=== PATIENT | male | born 1955 | race African-American/Black ===

== ENCOUNTER 2019-04-14 17:59 | Emergency (ER) | payer OTHER ==
[~2019-04-14] VITALS: Ht 180.3 cm; Wt 70.8 kg
[~2019-04-14 17:59] MED LIST: ASPIRIN EC81 M1 PO; B-12500 MCG PO; BACTRIM DS TAB1 EACH PO; FISH OIL 1,0001 EAC5 PO; IBUPROFEN 800800 M1 PO; IRON325 PO; LISINOPRIL30 MG PO; MULTIVITAMINS1 EAC7 PO; NORCO 5-325 TA1 EACH PO
[2019-04-14 18:22] LABS: URINE BILIRUBIN NEGATIVE (Negative); URINE BLOOD NEGATIVE (Negative); URINE CLARITY CLEAR; URINE COLOR YELLOW; URINE GLUCOSE-RANDOM* NEGATIVE (Negative); URINE KETONES NEGATIVE (Negative); URINE LEUKOCYTES-REFLEX NEGATIVE (Negative); URINE NITRITE-REFLEX NEGATIVE (Negative); URINE PROTEIN (DIPSTICK) NEGATIVE (Negative); URINE UROBILINOGEN 0.2 E.U./dl (0.2-1.0)
[2019-04-14] MEDS ORDERED: NORCO 5-325 TA1 EAC1 PO (19:51)
[2019-04-14 20:30] VITALS: BP 146/93
== END 2019-04-14 20:31 | disposition home or self-care (01) ==
LOC: ER 17:59
PROVIDERS: Emergency Medicine
DX: M53.3 Sacrococcygeal disorders, not elsewhere classified (principal); I10 Essential (primary) hypertension; Z98.890 Other specified postprocedural states; Z87.891 Personal history of nicotine dependence

== ENCOUNTER 2019-04-17 11:54 | Emergency (ER) | payer OTHER ==
[~2019-04-17] VITALS: Ht 180.3 cm; Wt 71.2 kg
[~2019-04-17 11:54] MED LIST changes: +NORCO 5-325 TA1 EAC1 PO
[2019-04-17] MEDS ORDERED: AMITRIPTYLINE H25 M2 PO (12:33)
[2019-04-17] MEDS ORDERED: MEDROLDOSEPACK PO (16:06)
[2019-04-17] MEDS ORDERED: NORFLEX100 MG PO (16:08)
[2019-04-17] MEDS ORDERED: NAPROSYN500 MG PO (16:08)
[2019-04-17 16:22] VITALS: BP 108/74
== END 2019-04-17 16:23 | disposition home or self-care (01) ==
LOC: ER 11:54
DX: M54.42 Lumbago with sciatica, left side (principal); I10 Essential (primary) hypertension; Z90.89 Acquired absence of other organs; Z87.891 Personal history of nicotine dependence

== ENCOUNTER → 2019-04-20 | Outpatient (CLI) | payer OTHER ==
[~2019-04-20] MED LIST changes: +AMITRIPTYLINE H25 M2 PO; +MEDROLDOSEPACK PO; +NAPROSYN500 MG PO; +NORFLEX100 MG PO
== END ==
LOC: RAD 08:57
DX: M51.36 Other intervertebral disc degeneration, lumbar region (principal)

== ENCOUNTER → 2019-04-23 | Outpatient (CLI) | payer OTHER | LOC: MRI 13:46 | DX: M47.27 Other spondylosis with radiculopathy, lumbosacral region (principal); M48.07 Spinal stenosis, lumbosacral region; M51.15 Intervertebral disc disorders with radiculopathy, thoracolumbar region; N28.1 Cyst of kidney, acquired ==

== ENCOUNTER → 2019-05-06 | Outpatient (CLI) | payer OTHER ==
[~2019-05-06] VITALS: Ht 180.3 cm; Wt 71.7 kg
[~2019-05-06] MED LIST changes: +GARLIC1 EACH PO
--- NOTE | ~2019-05-06 | HPC ---
[facility] [address] [address] PAIN MANAGEMENT CONSULTATION Name: LAISHA FOREMAN Room #: REG [facility] Adeola#: [id number] Admission: 05/06/19 Attend Phys: Jessica Preciado MD Discharge: Date of : 55 Report #: [id number] THIS REPORT FOR: //name// CC: Jessica Wang DATE OF SERVICE: 05/06/2019 CHIEF COMPLAINT: Back pain and pain that radiates down into my left buttocks. HISTORY: The patient is a 63-year-old gentleman who has been referred to the pain clinic for evaluation of pain involving his low back. The patient states that he has worked for about 25 years with a [employer]. He has a somewhat stressful job. This was quite a bit of bending, lifting and physical activity associated with his job. He has noticed some increased pain and discomfort in the low back area. This started about 04/14/2019. Denies any trauma. He has not had surgery on his back. This is the first episode of this problem. He is not noting any significant bowel or bladder dysfunction. Has noted pain and discomfort, which is warm and pulsating in the lower portion of his buttocks down the posterior portion of his leg involving the calf. He has noted some episodes of tightness. He had an MRI and x-ray. He has been seen in the Emergency Room on 2 occasions because of this pain and discomfort. He has been referred to the pain clinic for evaluation. ALLERGIES: No known drug allergies. CURRENT MEDICATIONS: Garlic, amitriptyline 25 mg at bedtime, vitamin B12 500 mcg daily, fish oil 1000 mg, multivitamin in the past, aspirin 81 mg, lisinopril 30 mg, takes 40 mg daily. PAST MEDICAL HISTORY: Hypertension, stomach problems. PAST SURGICAL HISTORY: Bunionectomy, hernia repair. 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 He is not working because of the pain. He is in the process of receiving disability compensation. REVIEW OF SYSTEMS: Questionnaire, generally good health, decreased appetite, fatigue and weakness, wears glasses, sometimes for reading, blurred vision, hearing loss, ringing in the ears, loss of appetite, nervousness. LABORATORY DATA: MRI of the lumbar spine dated 04/23/2019, indications: 1. Severe low back pain, left side radicular, left buttocks and hip pain, burning pain in the ankle, L2-L3 shows no focal disk protrusion. Central canal and neural foramen are maintained. There is mild bilateral facet degenerative change. [address] [address] PAIN MANAGEMENT CONSULTATION Name: LAISHA FOREMAN Room #: REG [facility].#: [id number] Admission: 05/06/19 Attend Phys: Jessica Preciado MD Discharge: Date of : 55 Report #: [id number] 2. L3-L4 demonstrates disk bulging diffusely without focal disk protrusion. The central canal with canal measures 7-8 mm. There is moderate bilateral facet degenerative change with facet joint fluid. There is uhxs-sc-whsxyinr ligamentum flavum hypertrophy. There is mild bilateral foraminal encroachment. 3. From the disk bulging. 4. L4-L5 demonstrates diffuse disk bulging. There is a more focal left lateral component with mass effect upon the left neural foramen and associated prominence left neural foraminal encroachment. The right neural foramen is fairly widely maintained. There is mild bilateral facet degenerative change. Central canal is maintained. 5. L5-S1 shows no focal protrusion. There is moderate facet spurring and degenerative change. The neural and foraminal canals are maintained. There is a cystic pelvic mass in the bladder. PAIN CLINIC ASSESSMENT AND PQRS: 1. History of osteoarthritis. The patient is not being treated for osteoarthritis, but has some arthritic changes in his spine. He is not being treated for rheumatoid arthritis. 2. Height 5 feet 11 inches, weight 158 pounds, BMI is 22.0. 3. Vital Signs: Blood pressure 150/92, pulse 82, respiratory rate 14, room air saturation is 100%. 4. Pain intensity 7/10. 5. Fall history: The patient has not fallen in the last 3 months. 6. Blood thinner. The patient is not on a blood thinning medication. 7. Hypertension. The patient is being treated for hypertension. 8. Opioids greater than 6 weeks. The patient is not on her opioid regimen. 9. Risk assessment tool, low for opioid use. 10. Functional assessment tool. 11. Recreational drug use. The patient denied. 12. Tobacco: The patient has never smoked. 13. Alcohol. The patient denies use of alcoholic beverages. PHYSICAL EXAMINATION: GENERAL: The patient is a well-developed, well-nourished black male, appears his stated age. He is alert and oriented x 3. His affect is appropriate. Speech is fluent. HEENT: Normocephalic, atraumatic. Extraocular eye muscles intact. Sclerae nonicteric. Mucous membranes are moist. NECK: Without adenopathy or JVD. Upper extremity muscle strength judged to be 5/5 for the major muscle groups in the upper extremity. HEART: Regular rate. S1, S2. ABDOMEN: Nontender. Bowel sounds present. MUSCULOSKELETAL: The patient without significant scoliosis, kyphosis or lordosis. Lower extremity muscle strength is judged to be 5/5 for the major muscle groups in the lower extremity. The patient has pain and discomfort that [facility] [address] [place] [address] PAIN MANAGEMENT CONSULTATION Name: LAISHA FOREMAN Room #: REG [facility].#: [id number] Admission: 05/06/19 Attend Phys: Jessica Preciado MD Discharge: Date of : 55 Report #: [id number] radiates down the left lateral portion of his buttocks into the L5-S1 dermatomal distribution with numbness and tingling associated with this dermatomal distribution. He has positive straight leg raise. Anant sign is negative. Anterior, posterior spring tests are negative. IMPRESSION: L5-S1 dermatomal distribution with pain that is radiating down the left side of his leg with numbness, weakness and sensory changes involving the leg in the L5-S1 dermatomal distribution. RECOMMENDATIONS: We discussed treatment options with the patient. A model was used to indicate the areas of problem and pathology. The patient's MRI was reviewed with him and his and an explanation was provided. The patient and his states that they feel that they understand what is going on. I think the patient will benefit from an epidural steroid injection. Risks and benefits of the procedure had been discussed. They include but are not limited to infection, worsening pain, no improvement in pain, spinal headache, nerve damage. The patient would like to proceed. The patient will return to the Pain clinic after his insurance company has provided him certification. We would like to thank you for letting us participate in his care. The patient is unable to resume work because of the intensity of the pain, which he is experiencing. He does walk with an antalgic gait. By: [id number] Jessica Preciado MD /GIDEON
[2019-05-06 08:52] VITALS: BP 150/92
--- NOTE | 2019-05-06 09:23 | NUR ---
Pain Clinic Assessment: 1. History of Osteoarthritis: SPINE History of Rheumatoid Arthritis: Not Applicable 2. Height: 5 ft. 11 in. 180.3 cm. Weight: 158.0 lb. oz. 71.668 kg. Patient's BMI: 22.0 3. Vital Signs: BP: 150/92 Pulse: 82 Resp: 14 Temp: 02 Sat: 100 ECG Mon: 4. Pain Intensity: 7 5. Fall Risk: Dizziness: N Needs help standing or walking: N Fallen in the last 3 months: N Fall risk comments: 6. Patient on Blood Thinner: None 7. History of Hypertension: Y 8. Opioid Therapy greater than 6 weeks: N Opiate Contract Signed: 9. Risk Assessment Tool Provided: 10. Functional Assessment Tool: 11. Recreational Drug Use: Never Drug Type: Tobacco Use: Never Smoker Tobacco Type: Amount or Packs/day: How Many Years: Alcohol Use: No Frequency: Quant:
== END ==
LOC: PAIN 07:58
DX: M54.9 Dorsalgia, unspecified (principal); Z79.899 Other long term (current) drug therapy; I10 Essential (primary) hypertension

== ENCOUNTER → 2019-05-13 | Outpatient (CLI) | payer OTHER | LOC: ULTRA 08:11 | DX: N28.1 Cyst of kidney, acquired (principal); I15.0 Renovascular hypertension ==

== ENCOUNTER → 2019-05-20 | Outpatient (CLI) | payer OTHER ==
[~2019-05-20] VITALS: Ht 180.3 cm; Wt 70.4 kg
--- NOTE | ~2019-05-20 | HPC ---
[facility] [place] [address] [place] [address] PAIN MANAGEMENT CONSULTATION Name: LAISHA FOREMAN Room #: REG [facility] Adeola#: [id number] Admission: 05/20/19 ������������������ Attend Phys: Jessica Preciado MD Discharge: ������������������ Date of : 55 Report #: [id number] THIS REPORT FOR: //name// CC: Jessica Wang DATE OF SERVICE: 05/20/2019 CHIEF COMPLAINT: Here for an epidural injection. I am still having pain that is going down in my back, leg with numbness and weakness. HISTORY: The patient is a 63-year-old gentleman who has been evaluated in the pain clinic because of lumbar radiculopathy. He is having pain and discomfort, which is quite problematic. As you recall, he works for the [employer] He has been working there for about 25 years. 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 He has noted pain, which became more problematic in 04/2019. He is having some pain and discomfort that has been radiating down into his buttocks on the left side involving the calf. He has returned to the pain clinic with a desire to undergo an epidural steroid injection to help curtail his pain. He is having pain that is involving the anterior portion of his thigh on the lateral side as well as some pain in the buttocks and calves. ALLERGIES: No known drug allergies. CURRENT MEDICATIONS: Garlic, amitriptyline 25 mg at bedtime, vitamin B12 of 500 mcg daily, fish oil 1000 mg, multivitamins in the past, aspirin 81 mg, lisinopril 30 mg, 40 mg of lisinopril daily. PAIN CLINIC ASSESSMENT/PQRS: 1. History of osteoarthritis. The patient is not being treated for osteoarthritis, but has some arthritic changes in his spine. He is not being treated for rheumatoid arthritis. 2. Height 5 feet 11 inches, weight 155 pounds, BMI is 21.7. 3. Vital signs: Blood pressure 133/83, pulse 73, respiratory rate 14, room air saturations 100%. 4. Pain intensity 03/18. 5. Fall history: The patient has not fallen in the last 3 months. 6. Blood thinner. The patient is not on a blood thinning medication. 7. Hypertension. The patient is being treated for hypertension. 8. Opioids greater than 6 weeks. The patient receives medications from his primary. He is not being treated with opioid medications on a regular basis. 9. Risk assessment tool, low for opioid use. 10. Functional assessment tool 57/70. 11. Recreational drug use. The patient denies. 12. Tobacco: The [place] [address] PAIN MANAGEMENT CONSULTATION Name: LAISHA FOREMAN RIMMA Room #: REG Kat[facility] Mir#: [id number] Admission: 05/20/19 ������������������ Attend Phys: Jessica Preciado MD Discharge: ������������������ Date of : 55 Report #: [id number] 13. Alcohol. The patient denies frequent use of alcoholic beverages. PHYSICAL EXAMINATION: GENERAL: The patient is a well-developed, well-nourished black male, appears his stated age. He is alert and oriented x 3. His affect is appropriate. Speech is fluent. HEENT: Normocephalic, atraumatic. Extraocular eye muscles intact. Sclerae nonicteric. Mucous membranes are moist. The patient is quite intense. NECK: Without adenopathy or JVD. EXTREMITIES: Upper extremity muscle strength judged to be 5/5 for the major muscle groups in the upper extremity. HEART: Regular rate. S1, S2. ABDOMEN: Nontender. Bowel sounds present. MUSCULOSKELETAL: Without significant scoliosis, kyphosis or lordosis. Lower extremity muscle strength is judged to be 5/5 for the major muscle groups in the lower extremity. The patient has pain and discomfort that continues to radiate down in the left leg. He has pain in the area of the left buttocks with pain in the L5-S1 dermatomal distribution. Also, complains of pain and discomfort in the low back area on the left with pain in the L5 dermatomal distribution. He complains of the L4-L5 dermatomal distribution, being more problematic than L5-S1 today. Straight leg raise is positive. Anant sign negative. Anterior and posterior spring test negative. Lumbar radiculopathy in L4-L5 as well as the L5-S1 dermatomal distribution. Feels that the L4-L5 dermatomal distribution is more problematic than the L5-S1. RECOMMENDATIONS: We discussed treatment options with the patient. Again, we discussed and try to locate the area, which is most problematic. At the time of the injection, the patient feels the L4-L5 dermatomal distribution is most problematic. The patient was reminded of the possible complication of the procedure, which could include but are not limited to infection, worsening pain, no improvement in pain, nerve damage, bleeding, spinal headache and the patient elects to proceed. PROCEDURE NOTE: The patient was taken to the procedure area. He was then assisted in getting on examination table. His back was sterilely prepped with a Betadine solution. Fluoroscopy using anterior, posterior as well as lateral viewing were implemented. The patient's back at the L4-L5 interspace was infiltrated with 0.25% bupivacaine using a 25-gauge needle. A 17-gauge Tuohy with loss of resistance technique was used to gain access to the epidural space. Aspiration was negative. A total of 80 mg Depo-Medrol, 40 mg triamcinolone and 2 mL of 0.25% bupivacaine was injected. The patient tolerated the procedure well. There were no complications. A total of 15 seconds fluoroscopy time was used. The patient will follow up in the future as needed. A script for hydrocodone 5/325, 45 tablets have been renewed. The patient will call us if he has any concerns. [address] [address] PAIN MANAGEMENT CONSULTATION Name: LAISHA FOREMAN RIMMA Room #: REG [facility]#: [id number] Admission: 05/20/19 ������������������ Attend Phys: Jessica Preciado MD Discharge: ������������������ Date of : 55 Report #: [id number] We would like to thank you for letting us participate in his care. We hope he continues to improve. ��������������������������������������������� ���������������������������������������� By: ��������������������������������������������� 1729 18 Jessica Preciado MD /nt
[2019-05-20 14:19] VITALS: BP 133/83
--- NOTE | 2019-05-20 14:31 | NUR ---
Pain Clinic Assessment: 1. History of Osteoarthritis: SPINE History of Rheumatoid Arthritis: Not Applicable 2. Height: 5 ft. 11 in. 180.3 cm. Weight: 155.2 lb. oz. 70.398 kg. Patient's BMI: 21.7 3. Vital Signs: BP: 133/83 Pulse: 73 Resp: 14 Temp: 02 Sat: 100 ECG Mon: 4. Pain Intensity: 7 5. Fall Risk: Dizziness: N Needs help standing or walking: N Fallen in the last 3 months: N Fall risk comments: 6. Patient on Blood Thinner: None 7. History of Hypertension: Y 8. Opioid Therapy greater than 6 weeks: N Opiate Contract Signed: 9. Risk Assessment Tool Provided: LOW 10. Functional Assessment Tool: 57/ 11. Recreational Drug Use: Never Drug Type: Tobacco Use: Never Smoker Tobacco Type: Amount or Packs/day: How Many Years: Alcohol Use: No Frequency: Quant:
== END | disposition home or self-care (01) ==
LOC: PAIN 07:07
DX: M54.16 Radiculopathy, lumbar region (principal); M19.90 Unspecified osteoarthritis, unspecified site; I10 Essential (primary) hypertension; Z79.899 Other long term (current) drug therapy; Z79.82 Long term (current) use of aspirin

== ENCOUNTER 2019-07-08 09:50 | Observation (INO) | payer OTHER ==
[2019-07-01 11:38] LABS: ABSOLUTE NEUTROPHILS 1.5 thou/uL (1.4-8.2); EOSINOPHILS 1.8 % (0.0-3.0); HEMATOCRIT 41.8 % (42.0-52.0); LYMPHOCYTES 36.3 % (24.0-44.0); MCHC 33.4 g/dL (28.0-37.0); MCV 92.8 fL (80.0-100.0); MONOCYTES 11.5 % (1.0-8.0); PLATELET COUNT 311 thou/uL (150-400); POLYS 48.4 % (36.0-66.0); RBC 4.51 mil/uL (4.50-6.00); RDW 13.2 % (10.5-14.5); WBC 3.1 thou/uL (4.0-11.0)
[2019-07-01 11:52] LABS: ALBUMIN 4.2 g/dL (3.4-5.0); CALCIUM 9.2 mg/dL (8.5-10.1); CREATININE 0.7 mg/dL (0.7-1.3); POTASSIUM 4.6 mmol/L (3.5-5.1); TOTAL BILIRUBIN 0.3 mg/dL (<0.1-1.0); TOTAL PROTEIN 7.6 g/dL (6.4-8.2)
--- NOTE | 2019-07-01 17:37 | EKG ---
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: annabelle : 1955 Requested By: Errol Suarez Order Number: [id number] MD: Ezequiel Minor Measurements Intervals [place] Rate: 76 P: 52 NC: 179 QRS: 4 QRSD: 104 T: -3 QT: 370 QTc: 417 Interpretive Statements Sinus rhythm Borderline T abnormalities, inferior leads Compared to ECG 09/06/2016 18:59:14 no significant change was found Electronically Signed On 07-01-2019 17:37:25 CDT by Ezequiel Minor [email or web address] <ELECTRONICALLY SIGNED> By: Ezequiel Minor MD, [facility] 07/01/19 1737 1121 1121 Ezequiel Minor MD, FACC /EPI
[~2019-07-08] VITALS: Ht 180.3 cm; Wt 70.8 kg
[2019-07-08 10:35] VITALS: BP 124/77
[2019-07-08] MEDS ORDERED: ROBAXIN PO (15:13)
[2019-07-08] MEDS ORDERED: COLACE100 MG PO (15:14)
--- NOTE | 2019-07-08 19:30 | NUR ---
64 YO MALE ADMITTED FROM PACU. A&OX4. IV INTACT IN L FA. DRSG TO LOWER LUMBAR HAS A SCANT AMT OF SANG. DRAINAGE. DENIES PAIN AT THIS TIME. SPOUSE AT BEDSIDE. ORIENTED PT TO ROOM, CALL LIGHT W/I REACH.
--- NOTE | 2019-07-08 21:58 | NUR ---
ADMISSION ASSESSMENT COMPLETED. PT IS ALERT AND ORIENTED. VERY PLEASANT. PAIN MEDS GIVEN FOR C/O 7/10 PAIN TO BACK. AFEBRILE. PT EATING AND DRINKING OKAY. SCDS AND TEDS IN PLACE. PT VOIDING OKAY.FALL EDUCATION PROVIDED. DRSG TO BACK IS INTACT.CALL LIGHT WITHIN REACH. WILL CONTINUE WITH POC TILL EOS.
[2019-07-09 05:17] VITALS: BP 124/81
[2019-07-09 10:29] VITALS: BP 124/81
--- NOTE | 2019-07-10 17:06 | PATH ---
[facility] [address] [place] [address] PATHOLOGY RPT PROCEDURE Name: LAISHA FOREMAN RIMMA Room #: 447-P [place] Mir#: [id number] Admission: 07/08/19 Date of : 55 Discharge: 07/09/19 Report #: [id number] Path Case #: [id number] [facility] Accession Number: [id number] . 01 Material submitted: . vertebral column - LUMBAR DISC DECOMPRESSION . 01 Clinical history: . HERNIATED DISC LUMBAR 4 THROUGH LUMBAR 5 . 02 Diagnosis: Disc, lumbar disc L4-5, discectomy: - Fragments of reactive cartilaginous tissue associated with myxoid changes, compatible with reactive nucleus pulposus. - Fragments of reactive fibrovascular dense connective tissue. (IUV/db; 07/10/2019) LBQ 07/10/2019 1456 Local . 02 Electronically signed: . Amber Carreno MD, Pathologist NPI- [id number] . 01 Gross description: . The specimen is received in formalin labeled "Laisha Foreman, lumbar disc decompression L4". The specimen source is listed on the requisition as "lumbar disc decompression L4-L5 ". Received is a 2.5 x 1.5 x 0.4 cm aggregate of ferris-brown soft tissue fragments. Bone is not identified grossly. The largest fragment is serially sectioned, and the specimen is submitted entirely in cassette A1. ([facility]; 07/09/2019) XDC/XDC 07/09/2019 1205 Local . 02 Pathologist provided ICD-10: M51.26 . 02 CPT . 644212 Specimen Comment: A courtesy copy of this report has been sent to [phone] Specimen Comment: [id number] Specimen Comment: Report sent to / DR VILLASEÑOR Performed at: [address] [id number] MD Huber Robertson MD Phone: [phone] [facility]formed at: [facility] [address] [place] [address] PATHOLOGY RPT PROCEDURE Name: KARLA FOREMANNON [place] Room #: 447-P [place] Ashby MDeborah#: [id number] Admission: 07/08/19 Date of : 55 Discharge: 07/09/19 Report #: [id number] Path Case #: [id number] [address] [place], [place] [id number] MD Amber Carreno MD Phone: [phone]
--- NOTE | 2019-07-13 09:04 | H ---
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 The problem is on the left side only. He has had significant pain. He rates his pain 8/10. He says it can reach a 10/10, but it has lessened to an 8/10 since he had an epidural steroid injection. He has been off work since this occurred. He did go to the Emergency Room because his pain was so severe. He says his leg is numb all the time below the knee. Standing increases his pain. Sitting helps him, but he cannot sit for too long and he must change positions frequently. He is taking hydrocodone and anti-inflammatory medications to help with his symptoms. Epidural steroid injection did help him slightly. Rest has been of no significant benefit. There is no problem on the right side. He feels as though his left leg is weak. PAST MEDICAL HISTORY: Hypertension. PAST SURGICAL HISTORY: Hernia repair in 2013, bunionectomy in 1995. CURRENT MEDICATIONS: [place], lisinopril, amitriptyline, multivitamin, potassium, aspirin, garlic, fish oil, vitamin B12, iron. ALLERGIES: No known drug allergies. FAMILY HISTORY: Alzheimer's disease, cancer, heart disease, hypertension, [place]. 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 He is . He does not smoke. He does not drink alcohol. REVIEW OF SYSTEMS: A 12-point review of systems was performed and is noncontributory except that mentioned above. PHYSICAL EXAMINATION: GENERAL: Alert, pleasant, in no acute distress. HEENT: Normocephalic, atraumatic. SKIN: Warm and dry. [address] [address] HISTORY AND PHYSICAL Name: LAISHA FOREMAN RIMMA Room #: 447-P [facility] Symone Mir#: [id number] Admission: 07/08/19 Attend Phys: Errol Suarez MD Discharge: 07/09/19 Date of : 55 Report #: [id number] MUSCULOSKELETAL: Lumbar paraspinal muscle bulk is normal, restricted range of motion of the lumbar spine, [id number]-[id number]-ylzeaakk tenderness of the lower lumbar spine on palpation, normal range of motion of the lower extremities bilaterally. EXTREMITIES: No clubbing, cyanosis or edema. NEUROLOGIC: Alert and oriented x 3, normal recent and remote memory, strength 5/5 in the lower extremities bilaterally. Sensory is intact to light touch in the lower extremities bilaterally except for decrease in the left anterior lateral leg and dorsum of the left foot. Reflexes were present and symmetric in the lower extremities bilaterally, straight leg raising was positive on the left side with left distal anterior thigh pain, straight leg raising is negative on the right, normal gait. IMAGING: I reviewed a lumbar MRI scan. There is a foraminal disk herniation at L4-L5 on the left. ASSESSMENT AND PLAN: Lumbar steroid injections have not given him significant lasting relief. He is not interested in any further epidurals. We spoke about surgery including microdiskectomy at L4-L5 on the left. I spoke with him about the technique, the risk and expected postoperative course. He understands and would like to proceed. We will make the arrangements. <ELECTRONICALLY SIGNED> By: Errol Suarez MD 07/13/19 0904 1258 1323 Errol Suarez MD /nt
--- NOTE | 2019-07-13 09:07 | O ---
[facility] [place] [address] OPERATIVE REPORT Name: LAISHA FOREMAN Room #: 447-P [facility] Symone Mir#: [id number] Admission: 07/08/19 Attend Phys: Errol Suarez MD Discharge: 07/09/19 Date of : 55 Report #: [id number] THIS REPORT FOR: //name// CC: Errol Wang DATE OF SERVICE: 07/08/2019 PREOPERATIVE DIAGNOSES: Foraminal disc herniation, L4-L5 left with severe left lumbar radiculopathy. POSTOPERATIVE DIAGNOSES: Foraminal disc herniation, L4-L5 left with severe left lumbar radiculopathy. OPERATION PERFORMED: A transfacet lumbar microdiscectomy, L4-L5 left with decompression of the left L4 root. SURGEON: Errol Suarez M.D. CHIEF MECHANICAL ENGINEER: The operation was performed with the assistance of ANAIS Gotti who assisted with the exposure to microdiscectomy as well as closure. OPERATIVE INDICATIONS: The patient is a pleasant 64-year-old man who developed problems with intractably severe back and left leg pain, which failed conservative measures including epidural steroid injections. On imaging studies, there was a large foraminal disc herniation at L4-L5 on the left with compression of the left L4 root. I have recommended lumbar microsurgery to decompress this region. I spoke with him about the technique, the diskectomy, the expected postoperative course, and he wished to go ahead. DESCRIPTION OF PROCEDURE: Following general endotracheal anesthesia, the patient was positioned prone on the Vinicius frame, his lumbar region was then prepped and draped in the standard fashion. RUTH hose and AV impulse boots were applied for DVT prophylaxis. The microscope was draped, the fluoroscope was draped, and brought in to the field. Ancef 2 grams given less than 1 hour prior to initiation of surgery. Using fluoroscopic guidance, an incision was made in the midline extending from mid L4 to mid L5. I dissected down through skin and subcutaneous tissue and reflected the paraspinal muscles. I placed a micro disk retractor, brought in a microscope and using a high speed drill, I burred down to generous hemilaminotomy. I worked superiorly and visualized the L4 root and followed this laterally. There was a large foraminal disc herniation. I incised the annulus and we began to perform a discectomy and then I was able to reach into the subligamentous space laterally with a blunt hook as well as a micropituitary, and I teased back and removed several large disc fragments. As I worked, the root became very well decompressed. I entered in the disc space [address] [address] OPERATIVE REPORT Name: LAISHA FOREMAN RIMMA Room #: 447-P [facility] Symone Mir#: [id number] Admission: 07/08/19 Attend Phys: Errol Suarez MD Discharge: 07/09/19 Date of : 55 Report #: [id number] and performed discectomy with pituitary rongeurs. Following this, I explored carefully and assured myself that there were no retained fragments, the root was quite free. I again irrigated copiously. I removed the retractors, obtained hemostasis in the muscle, and I closed the wound in layers with absorbable suture, and the skin was closed with 4-0 subcuticular stitch. The operation went very well. I was quite pleased with the surgery. <ELECTRONICALLY SIGNED> By: Errol Suarez MD 07/13/19 0907 [id number] Errol Suarez MD /nt
== END 2019-07-09 11:08 | disposition home or self-care (01) ==
LOC: OR 09:50 → TBA 09:50 → OR 10:10 → 4S 19:29 → OR 19:30 → 4S 19:30 → ENTRNSPT 07-09 10:38 → EDTRNSPTSTS 07-09 10:40 → 4S 07-09 11:08
PROVIDERS: ADMIT Neurological Surgery
DX: M51.16 Intervertebral disc disorders with radiculopathy, lumbar region (principal); I10 Essential (primary) hypertension; Z79.899 Other long term (current) drug therapy
CPT/HCPCS: 50010; 50101; 50144; 50402; 50503; 50515; 50704; 51687; 51779; 53210; 54118; 55106; 56526; 56528; 56532; 56805; 62110; 62900; 70005

== ENCOUNTER 2020-02-28 11:38 | Emergency (ER) | payer OTHER ==
[~2020-02-28] VITALS: Ht 177.8 cm; Wt 72.6 kg
[~2020-02-28 11:38] MED LIST changes: +COLACE100 MG PO; +ROBAXIN PO
[2020-02-28 12:16] LABS: ABSOLUTE NEUTROPHILS 3.4 thou/uL (1.4-8.2); BASOPHILS 0.8 % (0.0-2.0); EOSINOPHILS 0.3 % (0.0-3.0); HEMATOCRIT 38.6 % (42.0-52.0); HEMOGLOBIN 13.4 gm/dL (14.0-18.0); LYMPHOCYTES 24.4 % (24.0-44.0); MCH 32.4 pg (26.0-34.0); MCHC 34.6 g/dL (28.0-37.0); MCV 93.9 fL (80.0-100.0); MONOCYTES 8.5 % (1.0-8.0); PLATELET COUNT 228 thou/uL (150-400); RBC 4.11 mil/uL (4.50-6.00); RDW 13.5 % (10.5-14.5); WBC 5.2 thou/uL (4.0-11.0)
[2020-02-28 12:18] LABS: ANION GAP 6 mmol/L (7-16); BUN 6 mg/dL (7-18); CALCIUM 8.8 mg/dL (8.5-10.1); CHLORIDE 97 mmol/L (98-107); CO2 27 mmol/L (21-32); CREATININE 0.9 mg/dL (0.7-1.3); GLUCOSE 111 mg/dL (74-106); POTASSIUM 4.3 mmol/L (3.5-5.1); SODIUM 130 mmol/L (136-145)
[2020-02-28 12:27] LABS: TROPONIN-I <0.06 ng/mL (<0.06)
[2020-02-28 13:49] VITALS: BP 121/73
--- NOTE | 2020-02-29 07:25 | EKG ---
[facility] [place] [address] ELECTROCARDIOGRAM REPORT Name: LAISHA FOREMAN Room #: DEP [facility]#: [id number] Admission: 02/28/20 Attend Phys: Discharge: 02/28/20 Date of : 55 Report #: [id number] THIS REPORT FOR: cc: Vicente Wang Steven F. DO Lundgren, Craig H. MD [facility] THIS REPORT FOR: //name// [facility] ED Test Date: 2020-02-28 Test Time: 11:46:29 Pat Name: LAISHA FOREMAN Department: Room: Gender: Compliance Manager: : 1955 Requested By: Jossue Yuan Order Number: [id number] MD: Ezequiel Minor Measurements Intervals Notrees Rate: 53 P: 0 RI: 171 QRS: -9 QRSD: 97 T: 24 QT: 452 QTc: 425 Interpretive Statements Sinus rhythm No significant abnormality Compared to ECG 07/01/2019 11:21:32 T wave abnormalities no longer present Electronically Signed On 02-29-2020 7:24:58 CDT by Ezequiel Minor [email or web address] <ELECTRONICALLY SIGNED> By: Ezequiel Minor MD, FACC 02/29/20 0724 1146 1146 Ezequiel Minor MD, [facility] /EPI
== END 2020-02-28 13:49 | disposition home or self-care (01) ==
LOC: ER 11:38
PROVIDERS: Emergency Medicine
DX: E86.0 Dehydration (principal); R55 Syncope and collapse; I10 Essential (primary) hypertension; Z79.82 Long term (current) use of aspirin; Z79.899 Other long term (current) drug therapy; Z87.891 Personal history of nicotine dependence

== ENCOUNTER → 2021-03-27 | Outpatient (CLI) | payer OTHER | LOC: SJCVC 10:20 | PROVIDERS: ATTEND Internal Medicine | DX: R00.1 Bradycardia, unspecified (principal); I10 Essential (primary) hypertension; E78.5 Hyperlipidemia, unspecified; F42.9 Obsessive-compulsive disorder, unspecified; Z79.82 Long term (current) use of aspirin; Z79.899 Other long term (current) drug therapy ==

== ENCOUNTER → 2021-05-02 | Outpatient (CLI) | payer OTHER | LOC: SJCVCIMAG 04-27 07:55 | PROVIDERS: ATTEND Internal Medicine | DX: I34.0 Nonrheumatic mitral (valve) insufficiency (principal); I10 Essential (primary) hypertension; D64.9 Anemia, unspecified; E78.5 Hyperlipidemia, unspecified; F42.9 Obsessive-compulsive disorder, unspecified; Z79.899 Other long term (current) drug therapy; Z82.49 Family history of ischemic heart disease and other diseases of the circulatory system; Z79.82 Long term (current) use of aspirin ==

== ENCOUNTER → 2021-05-23 | Outpatient (CLI) | payer OTHER | LOC: SJCVC 11:05 | PROVIDERS: ATTEND Internal Medicine | DX: I10 Essential (primary) hypertension (principal); E78.5 Hyperlipidemia, unspecified; F42.9 Obsessive-compulsive disorder, unspecified; Z79.82 Long term (current) use of aspirin; Z79.899 Other long term (current) drug therapy ==

== ENCOUNTER → 2021-07-25 | Outpatient (CLI) | payer OTHER | END | disposition home or self-care (01) | LOC: SJCVC 09:49 | PROVIDERS: ATTEND Internal Medicine | DX: I10 Essential (primary) hypertension (principal); E78.5 Hyperlipidemia, unspecified; F42.9 Obsessive-compulsive disorder, unspecified; Z79.82 Long term (current) use of aspirin; Z79.899 Other long term (current) drug therapy ==

== ENCOUNTER → 2021-08-15 | Outpatient (CLI) | payer OTHER | LOC: SJCVC 09:49 | PROVIDERS: ATTEND Internal Medicine | DX: I10 Essential (primary) hypertension (principal); E78.5 Hyperlipidemia, unspecified; Z82.49 Family history of ischemic heart disease and other diseases of the circulatory system; Z79.82 Long term (current) use of aspirin; Z79.899 Other long term (current) drug therapy ==